=== PATIENT | female | born 1990 | race Caucasian/White ===

== ENCOUNTER → 2016-05-24 | Outpatient (CLI) | payer BC | LOC: MW.CHOBGYN 14:29 | PROVIDERS: ATTEND Obstetrics & Gynecology | DX: Z87.42 Personal history of other diseases of the female genital tract (principal); Z87.728 Personal history of other specified (corrected) congenital malformations of nervous system and sense organs; Z87.59 Personal history of other complications of pregnancy, childbirth and the puerperium | CPT/HCPCS: 36415; 82746 ==

== ENCOUNTER → 2016-06-09 | Outpatient (CLI) | payer BC | END | disposition home or self-care (01) | LOC: MW.CHOBGYN 13:21 | PROVIDERS: ATTEND Obstetrics & Gynecology | DX: Z87.42 Personal history of other diseases of the female genital tract (principal); Z87.59 Personal history of other complications of pregnancy, childbirth and the puerperium; Z87.728 Personal history of other specified (corrected) congenital malformations of nervous system and sense organs | CPT/HCPCS: 36415; 84144 ==

== ENCOUNTER → 2016-07-05 | Outpatient (CLI) | payer BC | LOC: MW.CHOBGYN 11:40 | PROVIDERS: ATTEND Obstetrics & Gynecology | DX: N97.0 Female infertility associated with anovulation (principal) | CPT/HCPCS: 36415; 84144 ==

== ENCOUNTER → 2016-07-14 | Outpatient (CLI) | payer BC | LOC: MW.CHOBGYN 14:12 | PROVIDERS: ATTEND Obstetrics & Gynecology | DX: N97.0 Female infertility associated with anovulation (principal) | CPT/HCPCS: 36415; 84144; 84702 ==

== ENCOUNTER → 2016-07-16 | Outpatient (CLI) | payer BC | LOC: MW.CHOBGYN 14:18 | PROVIDERS: ATTEND Obstetrics & Gynecology | DX: N97.0 Female infertility associated with anovulation (principal) | CPT/HCPCS: 36415; 84702 ==

== ENCOUNTER → 2016-07-21 | Outpatient (CLI) | payer BC | LOC: MW.CHOBGYN 14:19 | PROVIDERS: ATTEND Obstetrics & Gynecology | DX: N89.8 Other specified noninflammatory disorders of vagina (principal) | CPT/HCPCS: 87480; 87510; 87660 ==

== ENCOUNTER → 2016-08-02 | Outpatient (CLI) | payer BC | END | disposition home or self-care (01) | LOC: MW.CHOBGYN 13:38 | PROVIDERS: ATTEND Obstetrics & Gynecology | DX: O09.90 Supervision of high risk pregnancy, unspecified, unspecified trimester (principal) | CPT/HCPCS: 81003; 87480; 87491; 87510; 87591; 87660 ==

== ENCOUNTER → 2016-08-16 | Outpatient (CLI) | payer BC | LOC: MW.CHOBGYN 15:21 | PROVIDERS: ATTEND Obstetrics & Gynecology | DX: O26.859 Spotting complicating pregnancy, unspecified trimester (principal) | CPT/HCPCS: 81003 ==

== ENCOUNTER 2017-03-17 05:00 | Inpatient (IN) | payer BC ==
[~2017-03-17 05:00] MED LIST: Citric Acid/Sodium Citrate Solution 30 ML Cup PO SCH; Oxytocin/0.9 % Sodium Chloride 30 UNIT/500 ML BAG IV SCH; Sodium Chloride 0.9% 10 ML Syringe FLUSH PRN; Sodium Chloride 0.9% 2.5 ML Syringe FLUSH PRN
[2017-03-17] MEDS: Lactated Ringers 1,000 ML IV SCH ×4 (05:59→18:20)
[2017-03-17] MEDS ORDERED: Octyl 2-Cyanoacrylate 1 Tube ONE (07:21)
[2017-03-17] MEDS ORDERED: Oxytocin 10 Units/1 ML SDV ONE (07:34)
[2017-03-17] MEDS ORDERED: Ondansetron 4 MG/2 ML SDV ONE (07:34)
[2017-03-17] MEDS ORDERED: ceFAZolin 1 GM Vial ONE (07:34)
[2017-03-17] MEDS ORDERED: Morphine PF 10 MG/10 ML SDV ONE (07:34)
[2017-03-17] MEDS ORDERED: Sodium Chloride 0.9% 20 ML ONE (07:34)
--- NOTE | 2017-03-17 07:52 | PCM.PREANE ---
Preanesthetic Assessment - Anesthesia/Transfusion/Family Hx Anesthesia History: Prior Anesthesia Without Reaction Family History of Anesthesia Reaction: No Transfusion History: No Prior Transfusion(s) Intubation History: Unknown - Review of Systems General: No Symptoms Pulmonary: No Symptoms Cardiovascular: No Symptoms Gastrointestinal: No Symptoms Neurological: No Symptoms Other: Reports: None - Physical Assessment Height: 1.63 m Weight: 132.449 kg ASA Class: 2E Mental Status: Alert & Oriented x3 Airway Class: Mallampati = 2 Dentition: Reports: Normal Dentition Thyro-Mental Finger Breadths: 3 Mouth Opening Finger Breadths: 3 ROM/Head Extension: Full Lungs: Clear to Auscultation, Normal Respiratory Effort Cardiovascular: Regular Rate, Regular Rhythm - Lab Values: Laboratory Last Values WBC 13.58 K/uL (4.0-11.0) H 03/17/17 05:43 RBC 4.23 M/uL (4.30-5.90) L 03/17/17 05:43 Hgb 13.5 g/dL (12.0-16.0) 03/17/17 05:43 Hct 38.8 % (36.0-46.0) 03/17/17 05:43 MCV 91.7 fL (80.0-98.0) 03/17/17 05:43 MCH 31.9 pg (27.0-32.0) 03/17/17 05:43 MCHC 34.8 g/dL (31.0-37.0) 03/17/17 05:43 RDW Std Deviation 44.9 fl (28.0-62.0) 03/17/17 05:43 RDW Coeff of Wilber 14 % (11.0-15.0) 03/17/17 05:43 Plt Count 213 K/uL (150-400) 03/17/17 05:43 MPV 10.70 fL (7.40-12.00) 03/17/17 05:43 Nucleated RBC % 0.0 /100WBC 03/17/17 05:43 Nucleated RBCs # 0 K/uL 03/17/17 05:43 Blood Type O POSITIVE 03/17/17 05:43 Antibody Screen NEGATIVE 03/17/17 05:43 - Allergies Allergies/Adverse Reactions: Allergies Allergy/AdvReac Type Severity Reaction Status Date / Time No Known Allergies Allergy Verified 05/08/16 19:28 - Blood Blood Available: No - Anesthesia Plan Pre-Op Medication Ordered: None - Acknowledgements Anesthesia Type Planned: Spinal (general anesthesia back-up plan) Pt an Appropriate Candidate for the Planned Anesthesia: Yes Alternatives and Risks of Anesthesia Discussed w Pt/Guardian: Yes Pt/Guardian Understands and Agrees with Anesthesia Plan: Yes PreAnesthesia Questionnaire HEENT History: Reports: Other (See Below) Other HEENT History: wears glasses Gastrointestinal History: Reports: GERD Other Gastrointestinal History: heartburn with Genitourinary History: Reports: None [employer] OPERATOR History: Reports: Polycystic Ovaries, Psychiatric History: Reports: Addiction, Anxiety Endocrine/Metabolic History: Reports: Diabetes, Gestational, Obesity/BMI 30+ - Past Surgical History Head Surgeries/Procedures: Reports: None Female Surgical History: Reports: Section (under GETA), D&C - SUBSTANCE USE Smoking Status *Q: Never Smoker Second Hand Smoke Exposure: No Recreational Drug Use History: No - HOME MEDS Home Medications: Home Meds #103/Iron Fumarate/Fa [ ] 1 each PO DAILY 08/03/15 [ History] - CURRENT (IN HOUSE) MEDS Current Meds: Current Medications Citric Acid/Sodium Citrate (Bicitra Solution) 30 ml PO .ONCE ISABELLE Lactated Ringer's (Ringers, Lactated) 1,000 mls @ 500 mls/hr IV .BOLUS ISABELLE Last Admin: 03/17/17 07:08 Dose: 500 mls/hr Oxytocin/Sodium Chloride (Oxytocin 30 Unit/500 Ml-Ns) 30 unit in 500 mls @ 250 mls/hr IV TITRATE ISABELLE Sodium Chloride (Saline Flush) 10 ml FLUSH ASDIRECTED PRN PRN Reason: Keep Vein Open Sodium Chloride (Saline Flush) 2.5 ml FLUSH ASDIRECTED PRN PRN Reason: Keep Vein Open Discontinued Medications Cefazolin Sodium (Ancef) Confirm Administered Dose 2 gm .ROUTE .STK-MED ONE Stop: 03/17/17 07:35 Sodium Chloride (Normal Saline) Confirm Administered Dose 20 mls @ as directed .ROUTE .STK-MED ONE Stop: 03/17/17 07:35 Morphine Sulfate (Duramorph Pf) Confirm Administered Dose 10 mg .ROUTE .STK-MED ONE Stop: 03/17/17 07:35 Octyl Cyanoacrylate (Dermabond Advance) Confirm Administered Dose 1 applic .ROUTE .STK-MED ONE Stop: 03/17/17 07:22 Ondansetron HCl (Zofran) Confirm Administered Dose 4 mg .ROUTE .STK-MED ONE Stop: 03/17/17 07:35 Oxytocin (Pitocin) Confirm Administered Dose 20 unit .ROUTE .STK-MED ONE Stop: 03/17/17 07:35
[2017-03-17] MEDS ORDERED: Bisacodyl 10 MG Supp RECTAL PRN (08:51)
[2017-03-17] MEDS ORDERED: Ondansetron 4 MG/2 ML SDV IV PRN (08:51)
[2017-03-17] MEDS ORDERED: diphenhydrAMINE 50 MG/ML SDV IVPUSH PRN (08:51)
[2017-03-17] MEDS ORDERED: Acetaminophen/oxyCODONE 325-5 MG Tab PO PRN (08:51)
--- NOTE | 2017-03-17 08:55 | PCM.OPNOTE ---
- General Post-Op/Procedure Note Date of Surgery/Procedure: 03/17/17 Operative Procedure(s): Repeat C/Section Pre Op Diagnosis: [id number]+5 Previois C/section Post-Op Diagnosis: Same Anesthesia Technique: Spinal Primary Surgeon: Yaakov Greene Learning And Development Director: Lucía Núñez EBL in mLs: 800 Complications: None Condition: Good
[2017-03-17] MEDS ORDERED: Naloxone 0.4 MG/ML Syringe IVPUSH ONE (09:24)
[2017-03-17] MEDS ORDERED: fentaNYL 100 MCG/2 ML SDV IVPUSH PRN (09:24)
[2017-03-17] MEDS ORDERED: Meperidine PF 50 MG/ML Syringe IVPUSH ONE (09:31)
[2017-03-17] MEDS ORDERED: Nalbuphine 10 MG/1 ML Vial IVPUSH PRN (09:32)
[2017-03-17] MEDS ORDERED: Acetaminophen/oxyCODONE 325-10 MG Tab PO PRN (09:33)
[2017-03-17] MEDS ORDERED: Meperidine PF 25 MG/ML Syringe ONE (09:34)
[2017-03-17] MEDS: Ketorolac 30 MG/ML SDV IVPUSH SCH ×3 (09:41→21:09)
--- NOTE | 2017-03-17 10:27 | OR ---
SURGEON: Yaakov Greene MD DATE OF PROCEDURE: 03/17/2017 PREOPERATIVE DIAGNOSIS: Intrauterine 38 plus 4, previous section, admitted for elective repeat section. POSTOPERATIVE DIAGNOSIS: Intrauterine 38 plus 4, previous section, admitted for elective repeat section. OPERATION PERFORMED: Repeat low transverse section. CORNER CUTTER: MERVIN Wolfe. ANESTHESIA: Spinal, Guanaco Welsh and Dr. Zimmer. ESTIMATED BLOOD LOSS: 800 mL. COMPLICATIONS: None. FINDINGS: Female fetus. score reported to be 8 and 9. Weight is not available. Normal uterus, tubes, and ovaries. INDICATIONS FOR SURGERY: This patient is term. She is 38 plus 4. She is to have elective repeat section before the 39 zaki based on the recommendation of the perinatologist. Her care was uncomplicated. PROCEDURE IN DETAIL: The patient was brought to the OR, properly identified after adequate level of spinal anesthesia with a Davis catheter in the bladder. The patient was prepped and draped in sterile fashion as usual. Low transverse Pfannenstiel skin incision was done. Ranulfo fascia and rectus fascia were opened in the direction of the incision. The 2 recti muscles were and peritoneal cavity was entered. Bladder flap was raised in the usual manner, pushing the bladder away from the lower uterine segment. Low transverse uterine incision was done and extended manually with the hand. Fetus was in the vertex position, delivered without any problem, cried immediately. score reported to be 8 and 9. Weight was not available. The placenta delivered spontaneous, complete, and intact and then repair of the lower uterine segment done with 2-0 Vicryl continuous interlocking in 2 layers. Reperitonealization done with 3-0 Vicryl continuous. The peritoneal cavity was evacuated from all blood and amniotic fluid and closed with 3-0 Vicryl continuous. The rectus fascia was closed with #1 double-stranded PDS continuous. The Ranulfo's fascia was closed with 3-0 Vicryl continuous and the skin closed with Insorb staple. Instrument and sponge count was correct. The patient tolerated the procedure well and went to recovery room in stable general condition. RAKESH / ABDULKADIR /[id number]
[2017-03-17] MEDS: Docusate Sodium 100 MG Cap PO SCH ×2 (11:41→21:09)
--- NOTE | 2017-03-17 12:34 | PCM48HPAN ---
Post Anesthesia Note - EVALUATION WITHIN 48HRS OF ANESTHETIC Vital Signs in Normal Range: Yes Patient Participated in Evaluation: Yes Respiratory Function Stable: Yes Airway Patent: Yes Cardiovascular Function Stable: Yes Hydration Status Stable: Yes Pain Control Satisfactory: Yes Nausea and Vomiting Control Satisfactory: Yes Mental Status Recovered: Yes - COMMENTS/OBSERVATIONS Free Text/Narrative:: States she is a little dizzy but she was dizzy before she got here. Lights turned down.
[2017-03-18] MEDS: Ketorolac 30 MG/ML SDV IVPUSH SCH ×2 (02:47→09:13)
[2017-03-18] MEDS: Lanolin 100% Cream 7 GM Tube TOP PRN (04:51)
--- NOTE | 2017-03-18 08:48 | PCM.SURGPN ---
- General Info Date of Service: 03/18/17 POD#: 1 Functional Status: Reports: Pain Controlled - Review of Systems General: Reports: No Symptoms HEENT: Reports: No Symptoms Pulmonary: Reports: No Symptoms Cardiovascular: Reports: No Symptoms Gastrointestinal: Reports: No Symptoms Genitourinary: Reports: No Symptoms Musculoskeletal: Reports: No Symptoms Skin: Reports: No Symptoms Neurological: Reports: No Symptoms Psychiatric: Reports: No Symptoms - Patient Data Vitals - Most Recent: Last Vital Signs Temp 37.1 C 03/18/17 04:00 Pulse 77 03/18/17 04:00 Resp 18 03/18/17 06:00 BP 109/62 03/18/17 04:00 Pulse Ox 96 03/18/17 06:00 Weight - Most Recent: 132.449 kg I&O - Last 24 Hours: Intake & Output 03/17/17 03/18/17 03/18/17 22:59 06:59 14:59 Intake Total 1607 2500 Output Total 310 1500 Balance 1297 1000 Lab Results Last 24 Hrs: Laboratory Results - last 24 hr 03/17/17 03/18/17 Range/Units 11:32 05:41 Hgb 12.4 (12.0-16.0) g/dL Hct 36.2 (36.0-46.0) % POC Glucose 78 (60-110) mg/dL Med Orders - Current: Current Medications Bisacodyl (Dulcolax) 10 mg RECTAL .ONCE PRN PRN Reason: Constipation Citric Acid/Sodium Citrate (Bicitra Solution) 30 ml PO .ONCE ISABELLE Diphenhydramine HCl (Benadryl) 25 mg IVPUSH Q6H PRN PRN Reason: Itching or Nausea Last Admin: 03/17/17 14:57 Dose: 25 mg Docusate Sodium (Colace) 100 mg PO BID ISABELLE Last Admin: 03/17/17 21:09 Dose: 100 mg Emollient Ointment (Lansinoh Hpa) 0 gm TOP ASDIRECTED PRN PRN Reason: Sore Nipples Last Admin: 03/18/17 04:51 Dose: 7 gm Fentanyl (Sublimaze) 50 mcg IVPUSH Q5M PRN PRN Reason: Pain (severe 7-10) Stop: 03/18/17 09:26 Lactated Ringer's (Ringers, Lactated) 1,000 mls @ 500 mls/hr IV .BOLUS [facility] Last Admin: 03/17/17 07:08 Dose: 500 mls/hr Oxytocin/Sodium Chloride (Oxytocin 30 Unit/500 Ml-Ns) 30 unit in 500 mls @ 250 mls/hr IV TITRATE [facility] Lactated Ringer's (Ringers, Lactated) 1,000 mls @ 125 mls/hr IV ASDIRECTED ISABELLE Last Admin: 03/17/17 18:20 Dose: 125 mls/hr Ibuprofen (Motrin) 800 mg PO Q8H PRN PRN Reason: mild pain or fever Ketorolac Tromethamine (Toradol) 30 mg IVPUSH Q6H ISABELLE Stop: 03/18/17 09:01 Last Admin: 03/18/17 02:47 Dose: 30 mg Nalbuphine HCl (Nubain) 5 mg IVPUSH Q3H PRN PRN Reason: Itching Stop: 03/18/17 09:32 Ondansetron HCl (Zofran) 4 mg IV Q4H PRN PRN Reason: Nausea/Vomiting Last Admin: 03/17/17 14:56 Dose: 4 mg Oxycodone/Acetaminophen (Percocet 325-5 Mg) 1 tab PO Q4H PRN PRN Reason: Pain (moderate 4-6) Oxycodone/Acetaminophen (Percocet 325-5 Mg) 2 tab PO Q4H PRN PRN Reason: Pain (moderate 4-6) Oxycodone/Acetaminophen (Percocet 325-10 Mg) 1 tab PO Q4H PRN PRN Reason: for breakthrough pain Stop: 03/19/17 09:33 Sodium Chloride (Saline Flush) 10 ml FLUSH ASDIRECTED PRN PRN Reason: Keep Vein Open Sodium Chloride (Saline Flush) 2.5 ml FLUSH ASDIRECTED PRN PRN Reason: Keep Vein Open Discontinued Medications Cefazolin Sodium (Ancef) Confirm Administered Dose 2 gm .ROUTE .STK-MED ONE Stop: 03/17/17 07:35 Sodium Chloride (Normal Saline) Confirm Administered Dose 20 mls @ as directed .ROUTE .STK-MED ONE Stop: 03/17/17 07:35 Meperidine HCl (Demerol) 25 mg IVPUSH ONETIME ONE Stop: 03/17/17 09:32 Last Admin: 03/17/17 09:36 Dose: 25 mg Meperidine HCl (Demerol) Confirm Administered Dose 25 mg .ROUTE .STK-MED ONE Stop: 03/17/17 09:35 Last Admin: 03/17/17 11:18 Dose: Not Given Morphine Sulfate (Duramorph Pf) Confirm Administered Dose 10 mg .ROUTE .STK-MED ONE Stop: 03/17/17 07:35 Naloxone HCl (Narcan) 0.1 mg IVPUSH ONETIME ONE Stop: 03/17/17 09:25 Last Admin: 03/17/17 11:18 Dose: Not Given Octyl Cyanoacrylate (Dermabond Advance) Confirm Administered Dose 1 applic .ROUTE .STK-MED ONE Stop: 03/17/17 07:22 Ondansetron HCl (Zofran) Confirm Administered Dose 4 mg .ROUTE .STK-MED ONE Stop: 03/17/17 07:35 Oxytocin (Pitocin) Confirm Administered Dose 20 unit .ROUTE .STK-MED ONE Stop: 03/17/17 07:35 - Exam Wound/Incisions: Healing Well General: Alert, Oriented HEENT: Pupils Equal Neck: Supple Lungs: Clear to Auscultation, Normal Respiratory Effort Cardiovascular: Regular Rate, Regular Rhythm GI/Abdominal Exam: Normal Bowel Sounds, Soft, Non-Tender, No Organomegaly, No Distention, No Abnormal Bruit, No Mass, Pelvis Stable Extremities: Normal Inspection, Normal Range of Motion, Non-Tender, No Pedal Edema, Normal Capillary Refill Skin: Warm, Dry, Intact Neurological: No New Focal Deficit Psy/Mental Status: Alert, Normal Affect, Normal Mood - Problem List Review Problem List Initiated/Reviewed/Updated: Yes - My Orders Last 24 Hours: Active Orders 24 hr Category Date Time Status Patient Status [ADT] Routine ADT 03/17/17 08:51 Active Ambulate [RC] PER UNIT ROUTINE Care 03/17/17 08:51 Active Antiembolic Devices [RC] PER UNIT ROUTINE Care 03/17/17 08:52 Active Blood Glucose Check, Bedside [RC] ONETIME Care 03/17/17 11:30 Active Bradycardia-Neuroaxis [employer] [RC] ROUTINE Care 03/17/17 09:24 Active Bradycardia-Neuroaxis [employer] [RC] ROUTINE Care 03/17/17 09:31 Active Communication Order [RC] PER UNIT ROUTINE Care 03/17/17 08:51 Active Communication Order [RC] PER UNIT ROUTINE Care 03/17/17 08:51 Active Communication Order [RC] Per Unit Routine Care 03/17/17 08:51 Active Hypertension-Neuroaxis [employer] [RC] ROUTINE Care 03/17/17 09:24 Active Hypertension-Neuroaxis [employer] [RC] ROUTINE Care 03/17/17 09:31 Active Hypotension-Neuroaxis [employer] [RC] ROUTINE Care 03/17/17 09:24 Active Hypotension-Neuroaxis [employer] [RC] ROUTINE Care 03/17/17 09:31 Active May Shower [RC] ASDIRECTED Care 03/17/17 08:51 Active Oxygen Therapy [RC] PER UNIT ROUTINE Care 03/17/17 09:25 Active RT Incentive Spirometry [RC] Q2HWA Care 03/17/17 08:51 Active Vital Signs [RC] PER UNIT ROUTINE Care 03/17/17 08:51 Active Vital Signs [RC] Q1H Care 03/17/17 09:25 Active Regular Diet [DIET] Diet 03/17/17 Lunch Active Acetaminophen/oxyCODONE [Percocet 325-10 MG] Med 03/17/17 09:33 Active 1 tab PO Q4H PRN Acetaminophen/oxyCODONE [Percocet 325-5 MG] Med 03/17/17 08:51 Active 1 tab PO Q4H PRN Acetaminophen/oxyCODONE [Percocet 325-5 MG] Med 03/17/17 08:51 Active 2 tab PO Q4H PRN Bisacodyl [Dulcolax] Med 03/17/17 08:51 Active 10 mg RECTAL .ONCE PRN Docusate Sodium [Colace] Med 03/17/17 09:00 Active 100 mg PO BID Ibuprofen [Motrin] Med 03/17/17 08:51 Active 800 mg PO Q8H PRN Ketorolac [Toradol] Med 03/17/17 09:00 Active 30 mg IVPUSH Q6H Lactated Ringers [Ringers, Lactated] 1,000 ml Med 03/17/17 09:00 Active IV ASDIRECTED Lanolin [Lansinoh HPA] Med 03/17/17 08:51 Active See Dose Instructions TOP ASDIRECTED PRN Nalbuphine [Nubain] Med 03/17/17 09:32 Active 5 mg IVPUSH Q3H PRN Ondansetron [Zofran] Med 03/17/17 08:51 Active 4 mg IV Q4H PRN diphenhydrAMINE [Benadryl] Med 03/17/17 08:51 Active 25 mg IVPUSH Q6H PRN fentaNYL [Sublimaze] Med 03/17/17 09:24 Active 50 mcg IVPUSH Q5M PRN AN Neuroaxis Duramorph Precaution Reflex [OM.PC] PER Ot 03/17/17 09:30 Ordered UNIT ROUTINE AN Neuroaxis Duramorph Precaution Reflex [OM.PC] PER Ot 03/18/17 09:30 Ordered UNIT ROUTINE Assess Lochia [WOMSER] Per Unit Routine Ot 03/17/17 08:51 Ordered Assess Uterine Involution [WOMSER] Per Unit Routine Ot 03/17/17 08:51 Ordered Breast Pump [WOMSER] Per Unit Routine Ot 03/17/17 08:51 Ordered Peripheral IV Discontinue [OM.PC] Routine Oth 03/17/17 08:51 Ordered Sequential Compression Device [OM.PC] Per Unit Routine Oth 03/17/17 08:51 Ordered Medication Orders Bisacodyl (Dulcolax) 10 mg RECTAL .ONCE PRN PRN Reason: Constipation Citric Acid/Sodium Citrate (Bicitra Solution) 30 ml PO .ONCE ISABELLE Diphenhydramine HCl (Benadryl) 25 mg IVPUSH Q6H PRN PRN Reason: Itching or Nausea Last Admin: 03/17/17 14:57 Dose: 25 mg Docusate Sodium (Colace) 100 mg PO BID ISABELLE Last Admin: 03/17/17 21:09 Dose: 100 mg Admin: 03/17/17 11:41 Dose: Emollient Ointment (Lansinoh Hpa) 0 gm TOP ASDIRECTED PRN PRN Reason: Sore Nipples Last Admin: 03/18/17 04:51 Dose: 7 gm Fentanyl (Sublimaze) 50 mcg IVPUSH Q5M PRN PRN Reason: Pain (severe 7-10) Stop: 03/18/17 09:26 Lactated Ringer's (Ringers, Lactated) 1,000 mls @ 500 mls/hr IV .BOLUS ISABELLE Last Admin: 03/17/17 07:08 Dose: 500 mls/hr Infusion: 03/17/17 07:08 Dose: 500 mls/hr Admin: 03/17/17 05:59 Dose: 500 mls/hr Oxytocin/Sodium Chloride (Oxytocin 30 Unit/500 Ml-Ns) 30 unit in 500 mls @ 250 mls/hr IV TITRATE ISABELLE Lactated Ringer's (Ringers, Lactated) 1,000 mls @ 125 mls/hr IV ASDIRECTED [facility] Last Admin: 03/17/17 18:20 Dose: 125 mls/hr Infusion: 03/17/17 18:20 Dose: 125 mls/hr Admin: 03/17/17 10:25 Dose: 125 mls/hr Ibuprofen (Motrin) 800 mg PO Q8H PRN PRN Reason: mild pain or fever Ketorolac Tromethamine (Toradol) 30 mg IVPUSH Q6H [facility] Stop: 03/18/17 09:01 Last Admin: 03/18/17 02:47 Dose: 30 mg Admin: 03/17/17 21:09 Dose: 30 mg Admin: 03/17/17 14:57 Dose: 30 mg Admin: 03/17/17 09:41 Dose: 30 mg Nalbuphine HCl (Nubain) 5 mg IVPUSH Q3H PRN PRN Reason: Itching Stop: 03/18/17 09:32 Ondansetron HCl (Zofran) 4 mg IV Q4H PRN PRN Reason: Nausea/Vomiting Last Admin: 03/17/17 14:56 Dose: 4 mg Oxycodone/Acetaminophen (Percocet 325-5 Mg) 1 tab PO Q4H PRN PRN Reason: Pain (moderate 4-6) Oxycodone/Acetaminophen (Percocet 325-5 Mg) 2 tab PO Q4H PRN PRN Reason: Pain (moderate 4-6) Oxycodone/Acetaminophen (Percocet 325-10 Mg) 1 tab PO Q4H PRN PRN Reason: for breakthrough pain Stop: 03/19/17 09:33 Sodium Chloride (Saline Flush) 10 ml FLUSH ASDIRECTED PRN PRN Reason: Keep Vein Open Sodium Chloride (Saline Flush) 2.5 ml FLUSH ASDIRECTED PRN PRN Reason: Keep Vein Open - Assessment Assessment (Free Text/Narrative):: Status post section postoperative day #1 the Davis catheter DC'd the patient is voiding without any problem the incision is dry - Plan Plan (Free Text/Narrative):: Planning to send the patient home in a.m.
[2017-03-18] MEDS: Docusate Sodium 100 MG Cap PO SCH ×2 (09:17→20:44)
[2017-03-18] MEDS: Acetaminophen/oxyCODONE 325-5 MG Tab PO PRN ×2 (15:31→20:44)
[2017-03-18] MEDS: Ibuprofen 800 MG Tab PO PRN (17:57)
[2017-03-19] MEDS: Acetaminophen/oxyCODONE 325-5 MG Tab PO PRN ×2 (00:31→07:33)
[2017-03-19] MEDS: Ibuprofen 800 MG Tab PO PRN (04:15)
[2017-03-19 08:06] VITALS: BP 133/84
--- NOTE | 2017-03-19 08:09 | PCM.DCSUM1 ---
Discharge Summary - Hospital Course Free Text/Narrative:: Discharge home with . Follow up in 10 days for incision check and 6 weeks for post visit. - Discharge Data Discharge Date: 03/19/17 Discharge Disposition: Home, Self-Care 01 Condition: Good - Patient Summary/Data Operative Procedure(s) Performed: Repeat C/Section - Patient Instructions Diet: Usual Diet as Tolerated Activity: As Tolerated, Rest and Relax Today Driving: May Drive Today Showering/Bathing: May Shower Wound/Incision Care: Keep Operative Site/Wound Site Clean and Dry Notify Provider of: Fever, Increased Pain, Swelling and Redness, Drainage, Nausea and/or Vomiting Other/Special Instructions: Discharge home with . Follow up in 10 days for incision check and 6 weeks for post visit. - Discharge Plan Home Medications: Home Meds #103/Iron Fumarate/Fa [ ] 1 each PO DAILY 08/03/15 [ History] Patient Handouts: Delivery, Care After Referrals: [facility] [Outside] Yaakov Greene MD [Physician] - (2 weeks: 04/05/2017 @ 0930 6 weeks: 04/22/17 @ 1045 ) - General Info Date of Service: 03/19/17 Functional Status: Reports: Pain Controlled, Tolerating Diet, Ambulating, Urinating - Review of Systems General: Reports: No Symptoms HEENT: Reports: No Symptoms Pulmonary: Reports: No Symptoms Cardiovascular: Reports: No Symptoms Gastrointestinal: Reports: No Symptoms Genitourinary: Reports: No Symptoms Musculoskeletal: Reports: No Symptoms Skin: Reports: No Symptoms Neurological: Reports: No Symptoms Psychiatric: Reports: No Symptoms - Patient Data Vitals - Most Recent: Last Vital Signs Temp 36.9 C 03/19/17 08:00 Pulse 81 03/19/17 08:00 Resp 16 03/19/17 08:00 BP 133/84 03/19/17 08:00 Pulse Ox 97 03/19/17 08:00 Weight - Most Recent: 132.449 kg Med Orders - Current: Current Medications Bisacodyl (Dulcolax) 10 mg RECTAL .ONCE PRN PRN Reason: Constipation Citric Acid/Sodium Citrate (Bicitra Solution) 30 ml PO .ONCE ISABELLE Diphenhydramine HCl (Benadryl) 25 mg IVPUSH Q6H PRN PRN Reason: Itching or Nausea Last Admin: 03/17/17 14:57 Dose: 25 mg Docusate Sodium (Colace) 100 mg PO BID ISABELLE Last Admin: 03/18/17 20:44 Dose: 100 mg Emollient Ointment (Lansinoh Hpa) 0 gm TOP ASDIRECTED PRN PRN Reason: Sore Nipples Last Admin: 03/18/17 04:51 Dose: 7 gm Lactated Ringer's (Ringers, Lactated) 1,000 mls @ 500 mls/hr IV .BOLUS ISABELLE Last Admin: 03/17/17 07:08 Dose: 500 mls/hr Oxytocin/Sodium Chloride (Oxytocin 30 Unit/500 Ml-Ns) 30 unit in 500 mls @ 250 mls/hr IV TITRATE ISABELLE Lactated Ringer's (Ringers, Lactated) 1,000 mls @ 125 mls/hr IV ASDIRECTED ISABELLE Last Admin: 03/17/17 18:20 Dose: 125 mls/hr Ibuprofen (Motrin) 800 mg PO Q8H PRN PRN Reason: mild pain or fever Last Admin: 03/19/17 04:15 Dose: 800 mg Ondansetron HCl (Zofran) 4 mg IV Q4H PRN PRN Reason: Nausea/Vomiting Last Admin: 03/17/17 14:56 Dose: 4 mg Oxycodone/Acetaminophen (Percocet 325-5 Mg) 1 tab PO Q4H PRN PRN Reason: Pain (moderate 4-6) Last Admin: 03/19/17 07:33 Dose: 1 tab Oxycodone/Acetaminophen (Percocet 325-5 Mg) 2 tab PO Q4H PRN PRN Reason: Pain (moderate 4-6) Oxycodone/Acetaminophen (Percocet 325-10 Mg) 1 tab PO Q4H PRN PRN Reason: for breakthrough pain Stop: 03/19/17 09:33 Sodium Chloride (Saline Flush) 10 ml FLUSH ASDIRECTED PRN PRN Reason: Keep Vein Open Sodium Chloride (Saline Flush) 2.5 ml FLUSH ASDIRECTED PRN PRN Reason: Keep Vein Open Discontinued Medications Cefazolin Sodium (Ancef) Confirm Administered Dose 2 gm .ROUTE .STK-MED ONE Stop: 03/17/17 07:35 Fentanyl (Sublimaze) 50 mcg IVPUSH Q5M PRN PRN Reason: Pain (severe 7-10) Stop: 03/18/17 09:26 Sodium Chloride (Normal Saline) Confirm Administered Dose 20 mls @ as directed .ROUTE .STK-MED ONE Stop: 03/17/17 07:35 Ketorolac Tromethamine (Toradol) 30 mg IVPUSH Q6H ISABELLE Stop: 03/18/17 09:01 Last Admin: 03/18/17 09:13 Dose: 30 mg Meperidine HCl (Demerol) 25 mg IVPUSH ONETIME ONE Stop: 03/17/17 09:32 Last Admin: 03/17/17 09:36 Dose: 25 mg Meperidine HCl (Demerol) Confirm Administered Dose 25 mg .ROUTE .STK-MED ONE Stop: 03/17/17 09:35 Last Admin: 03/17/17 11:18 Dose: Not Given Morphine Sulfate (Duramorph Pf) Confirm Administered Dose 10 mg .ROUTE .STK-MED ONE Stop: 03/17/17 07:35 Nalbuphine HCl (Nubain) 5 mg IVPUSH Q3H PRN PRN Reason: Itching Stop: 03/18/17 09:32 Naloxone HCl (Narcan) 0.1 mg IVPUSH ONETIME ONE Stop: 03/17/17 09:25 Last Admin: 03/17/17 11:18 Dose: Not Given Octyl Cyanoacrylate (Dermabond Advance) Confirm Administered Dose 1 applic .ROUTE .STK-MED ONE Stop: 03/17/17 07:22 Ondansetron HCl (Zofran) Confirm Administered Dose 4 mg .ROUTE .STK-MED ONE Stop: 03/17/17 07:35 Oxytocin (Pitocin) Confirm Administered Dose 20 unit .ROUTE .STK-MED ONE Stop: 03/17/17 07:35 - Exam General: Reports: Alert, Oriented, Cooperative, No Acute Distress Lungs: Reports: Clear to Auscultation, Normal Respiratory Effort Cardiovascular: Reports: Regular Rate, Regular Rhythm, No Murmurs GI/Abdominal Exam: Soft, Non-Tender, No Organomegaly (Female) Exam: Vaginal Bleeding Rectal (Female) Exam: Deferred Back Exam: Reports: Full Range of Motion Extremities: Normal Range of Motion, Non-Tender, No Pedal Edema, Normal Capillary Refill Skin: Reports: Warm, Dry, Intact Wound/Incisions: Reports: Healing Well, No Drainage Neurological: Reports: No New Focal Deficit, Normal Speech, Normal Tone Psy/Mental Status: Reports: Alert, Normal Affect, Normal Mood *Q Meaningful Use (DIS) - VTE *Q VTE Criteria *Q: - Stroke *Q Stroke Criteria *Q: - AMI *Q AMI Criteria *Q:
[2017-03-19] MEDS: Lanolin 100% Cream 7 GM Tube TOP PRN (10:12)
[2017-03-19] MEDS: Docusate Sodium 100 MG Cap PO SCH (10:14)
== END 2017-03-19 10:30 | disposition home or self-care (01) | DRG 540 ==
LOC: MW.OB 05:00
PROVIDERS: ADMIT Obstetrics & Gynecology; ATTEND Obstetrics & Gynecology
PROC: 10D00Z1 Extraction of Products of Conception, Low, Open Approach (ICD-10-PCS; principal; 2017-03-17)
DX: O34.211 Maternal care for low transverse scar from previous cesarean delivery (principal); Z3A.38 38 weeks gestation of pregnancy; Z37.0 Single live birth
CPT/HCPCS: 01961; 36415; 59025; 82962; 85014; 85018; 85027; 86850; 86900; 86901; A9270-GY; J0690; J1200; J1885; J2175; J2270; J2405; J2590; J7120

== ENCOUNTER 2021-04-03 16:11 | Emergency (ER) | payer OTHER ==
[2021-04-03] MEDS ORDERED: Sodium Chloride 0.9% 1,000 ML IV ONE (16:40)
[2021-04-03] MEDS ORDERED: Ketorolac 30 MG/ML SDV IVPUSH ONE (16:41)
[2021-04-03] MEDS ORDERED: Cyclobenzaprine 10 MG Tab PO ONE (16:41)
--- NOTE | 2021-04-03 16:44 | EDM.PDOC ---
ED HPI GENERAL MEDICAL PROBLEM - General Chief Complaint: Syncope Stated Complaint: [facility] REFERRAL, FAINTED EARLIER Time Seen by Provider: 04/03/21 16:13 Source of Information: Reports: Patient History Limitations: Reports: No Limitations - History of Present Illness INITIAL COMMENTS - FREE TEXT/NARRATIVE: 30-year-old female presents for syncopal episode. Patient states this occurred this morning. She got up from bed to urinate and noted upon getting up that she felt dizzy and lightheaded. She began to feel nauseated and had tunneling of vision. After sitting down on the toilet she did slump over to the right and had a brief syncopal episode. Her assisted her. Afterwards she has felt tired throughout the day but has had no further syncopal episodes. Denies chest pain or shortness of breath. Denies fevers or cough. Denies headache, but does note pain and muscle tightness in her right posterior neck. Headache Pain Score (Numeric/FACES): 3 - Related Data Allergies Allergy/AdvReac Type Severity Reaction Status Date / Time No Known Allergies Allergy Verified 04/03/21 16:28 Home Meds: Home Meds Cetirizine [ZyrTEC] 10 mg PO DAILY 04/03/21 [History] hydrOXYzine HCL [Hydroxyzine HCl] 50 mg PO DAILY 04/03/21 [History] Past Medical History HEENT History: Reports: Other (See Below) Other HEENT History: wears glasses Gastrointestinal History: Reports: GERD Other Gastrointestinal History: heartburn with Genitourinary History: Reports: None [employer] REPRESENTATIVE History: Reports: Polycystic Ovaries, Psychiatric History: Reports: Addiction, Anxiety Endocrine/Metabolic History: Reports: Diabetes, Gestational, Obesity/BMI 30+ - Past Surgical History Head Surgeries/Procedures: Reports: None Female Surgical History: Reports: Section Social & Family History - Family History Family Medical History: No Pertinent Family History - Tobacco Use Second Hand Smoke Exposure: No - Caffeine Use Caffeine Use: Reports: None - Recreational Drug Use Recreational Drug Use: No ED ROS GENERAL - Review of Systems Review Of Systems: Comprehensive ROS is negative, except as noted in HPI. ED EXAM, GENERAL - Physical Exam Exam: See Below Exam Limited By: No Limitations General Appearance: Alert, WD/WN, No Apparent Distress Eye Exam: Bilateral Eye: EOMI, PERRL Ears: Hearing Grossly Normal Throat/Mouth: Normal Voice, No Airway Compromise Head: Atraumatic, Normocephalic Respiratory/Chest: No Respiratory Distress, Lungs Clear, Normal Breath Sounds, No Accessory Muscle Use Cardiovascular: Normal Peripheral Pulses, Regular Rate, Rhythm GI/Abdominal: Soft, Non-Tender Extremities: Normal Inspection Neurological: Alert, CN II-XII Intact, Normal Cognition, Normal Gait, No Motor/Sensory Deficits Psychiatric: Normal Affect, Normal Mood Skin Exam: Warm, Dry, Intact, Normal Color #1 Interpretation EKG Date: 04/03/21 Time: 17:01 Rhythm: NSR Rate (Beats/Min): 73 [place]: Normal P-Wave: Present QRS: Normal ST-T: Normal QT: Normal SD/PQ Interval: 173 Comparison: NA - No Prior EKG EKG Interpretation Comments: normal EKG, normal sinus rhythm, no ischemic changes, low voltage QRS Course - Vital Signs Last Recorded V/S: Last Vital Signs Temp 98.2 F 04/03/21 16:25 Pulse 73 04/03/21 16:25 Resp 20 04/03/21 16:25 BP 143/84 H 04/03/21 16:25 Pulse Ox 96 04/03/21 16:25 - Orders/Labs/Meds Orders: Active Orders 24 hr Category Date Time Status Saline Lock Insert [OM.PC] Stat Oth 04/03/21 16:40 Ordered Labs: Laboratory Tests 04/03/21 04/03/21 Range/Units 17:26 17:26 WBC 5.48 (4.0-11.0) K/uL RBC 4.81 (4.30-5.90) M/uL Hgb 14.8 (12.0-16.0) g/dL Hct 43.6 (36.0-46.0) % MCV 90.6 (80.0-98.0) fL MCH 30.8 (27.0-32.0) pg MCHC 33.9 (31.0-37.0) g/dL RDW Std Deviation 45.2 (28.0-62.0) fl RDW Coeff of Wilber 14 (11.0-15.0) % Plt Count 233 (150-400) K/uL MPV 10.40 (7.40-12.00) fL Neut % (Auto) 62.4 (48.0-80.0) % Lymph % (Auto) 20.4 (16.0-40.0) % [place] % (Auto) 15.5 H (0.0-15.0) % Eos % (Auto) 1.3 (0.0-7.0) % Baso % (Auto) 0.4 (0.0-1.5) % Neut # (Auto) 3.4 (1.4-5.7) K/uL Lymph # (Auto) 1.1 (0.6-2.4) K/uL [place] # (Auto) 0.9 H (0.0-0.8) K/uL Eos # (Auto) 0.1 (0.0-0.7) K/uL Baso # (Auto) 0.0 (0.0-0.1) K/uL Nucleated RBC % 0.0 /100WBC Nucleated RBCs # 0 K/uL Sodium 140 (136-145) mmol/L Potassium 3.8 (3.5-5.1) mmol/L Chloride 104 (98-107) mmol/L Carbon Dioxide 27.2 (21.0-32.0) mmol/L BUN 12 (7.0-18.0) mg/dL Creatinine 0.8 (0.6-1.0) mg/dL Est Cr Clr Drug Dosing 87.99 mL/min Estimated GFR (MDRD) > 60.0 ml/min Glucose 77 (74-106) mg/dL Calcium 9.4 (8.5-10.1) mg/dL Total Bilirubin 0.2 (0.2-1.0) mg/dL AST 21 (15-37) IU/L ALT 27 (14-63) IU/L Alkaline Phosphatase 81 (46-116) U/L Troponin I < 0.050 (0.000-0.056) ng/mL Total Protein 8.0 (6.4-8.2) g/dL Albumin 3.8 (3.4-5.0) g/dL Globulin 4.2 H (2.6-4.0) g/dL Albumin/Globulin Ratio 0.9 (0.9-1.6) TSH, Ultra Sensitive 1.17 (0.36-3.74) uIU/mL Meds: Medications Discontinued Medications Generic Name Dose Route Start Last Admin Trade Name Freq PRN Reason Stop Dose Admin Cyclobenzaprine HCl 10 mg 04/03/21 16:41 04/03/21 17:21 Cyclobenzaprine 10 Mg Tab PO 04/03/21 16:42 10 mg ONETIME ONE Administration Sodium Chloride 1,000 mls @ 999 mls/hr 04/03/21 16:40 04/03/21 17:19 Normal Saline IV 04/03/21 17:40 999 mls/hr .Bolus ONE Administration Ketorolac Tromethamine 15 mg 04/03/21 16:41 04/03/21 17:20 Ketorolac 30 Mg/Ml Sdv IVPUSH 04/03/21 16:42 15 mg ONETIME ONE Administration - Re-Assessments/Exams Free Text/Narrative Re-Assessment/Exam: 04/03/21 16:43 Patient symptoms are suggestive of vasovagal syncope. Will get EKG and basic labs. Will give IV fluid bolus, Toradol, Flexeril for painful right posterior paracervical spinal muscle spasm 04/03/21 18:12 Patient's labs are all unremarkable. Will discharge with PMD follow-up for likely vasovagal episode. Departure - Departure Time of Disposition: 18:12 Disposition: Home, Self-Care 01 Condition: Good Clinical Impression: Vasovagal episode - Discharge Information Instructions: Near-Syncope Forms: ED Department Discharge Additional Instructions: Your symptoms are consistent with a type of passing out called vasovagal s yncope. This is usually not very dangerous. You should definitely follow-up with your primary care physician and see if they want to do any further work-up. If you have further episodes of passing out then you should come back to the emergency department for reassessment. The following information is given to patients seen in the emergency department who are being discharged to home. This information is to outline your options for follow-up care. We provide all patients seen in our emergency department with a follow-up referral. The need for follow-up, as well as the timing and circumstances, are variable depending upon the specifics of your emergency department visit. If you don't have a primary care physician on staff, we will provide you with a referral. We always advise you to contact your personal physician following an emergency department visit to inform them of the circumstance of the visit and for follow-up with them and/or the need for any referrals to a consulting spec ialist. The emergency department will also refer you to a specialist when appropriate. This referral assures that you have the opportunity for follow-up care with a specialist. All of these measure are taken in an effort to provide you with optimal care, which includes your follow-up. Under all circumstances we always encourage you to contact your private physician who remains a resource for coordinating your care. When calling for follow-up care, please make the office aware that this follow-up is from your recent emergency room visit. If for any reason you are refused follow-up, please contact the [facility] Emergency Department at and asked to speak to the emergency department charge nurse. Please follow up with your primary care physician. If you do not have a primary care physician, see below: [facility] [address] [place] [address] [id number] [facility] [address] [place] [id number] [facility] [address] [place] [id number] Sepsis Event Note (ED) - Evaluation Sepsis Screening Result: No Definite Risk - Focused Exam Vital Signs: Vital Signs Temp Pulse Resp BP Pulse Ox 04/03/21 16:25 98.2 F 73 20 143/84 H 96 - My Orders Last 24 Hours: My Active Orders 04/03/21 16:40 Saline Lock Insert [OM.PC] Stat - Assessment/Plan Last 24 Hours: My Active Orders 04/03/21 16:40 Saline Lock Insert [OM.PC] Stat
--- NOTE | 2021-04-03 18:01 | CR ---
INDICATION: Syncopal episode TECHNIQUE: Chest radiograph 1 view COMPARISON: 03/25/2017 FINDINGS: The sensitivity and specificity of the exam are moderately limited by the patient`s body habitus. Mediastinum: The central pulmonary arteries are near the upper limits of normal in size, similar to prior exam. The heart silhouette is normal in size and morphology. Lung: Both lungs are unremarkable in appearance. No sign of pleural effusion seen. No pneumothorax is identified. Bone and Soft tissue: Unremarkable for age. IMPRESSION: 1. No acute cardiopulmonary disease is seen. Dictated by José Wheeler MD @ 04/03/2021 6:00:56 PM Dictated by: José Wheeler MD @ 04/03/2021 18:00:59 (Electronically Signed)
[2021-04-03 18:07] LABS: BLOOD UREA NITROGEN,BUN 12 mg/dL (7.0-18.0); CARBON DIOXIDE,CO2 27.2 mmol/L (21.0-32.0); CHLORIDE,CL 104 mmol/L (98-107); GLUCOSE RANDOM 77 mg/dL (74-106); POTASSIUM,K 3.8 mmol/L (3.5-5.1); SODIUM,NA 140 mmol/L (136-145)
[2021-04-03 18:34] VITALS: BP 135/77; PULSE 65
== END 2021-04-03 18:21 | disposition home or self-care (01) ==
LOC: MW.ED 16:11
DX: R55 Syncope and collapse (principal); R42 Dizziness and giddiness; E66.9 Obesity, unspecified; Z68.42 Body mass index [BMI] 45.0-49.9, adult
CPT/HCPCS: 36415; 71045; 80053; 84443; 84484; 85025; 93005; 96374; 99284; A9270; J1885; J7030

== ENCOUNTER 2023-06-26 12:52 | Emergency (ER) | payer OTHER ==
[2023-06-26 13:59] LABS: BASOPHILS ABSOLUTE AUTO 0.04 K/uL (0.00-0.20); BASOPHILS PERCENT AUTO 0.3 % (0.0-1.0); EOSINOPHILS ABSOLUTE AUTO 0.09 K/uL (0.00-0.45); EOSINOPHILS PERCENT AUTO 0.8 % (0.0-6.0); HEMATOCRIT 43.7 % (37.0-47.0); HEMOGLOBIN 14.7 g/dL (12.0-16.0); IMMATURE GRAN ABSOLUTE AUTO 0.05 K/uL (0.00-0.05); IMMATURE GRAN PERCENT AUTO 0.4 % (0.0-0.4); LYMPHOCYTES ABSOLUTE AUTO 1.98 K/uL (1.00-4.80); LYMPHOCYTES PERCENT AUTO 17.3 % (24.0-44.0); MEAN CORPUSCULAR HEMOGLOBIN 30.4 pg (28.0-32.0); MEAN CORPUSCULAR HGB CONC 33.6 g/dL (32.0-36.0); MEAN CORPUSCULAR VOLUME 90.3 fL (83.0-99.0); MEAN PLATELET VOLUME 10.1 fL (9.4-12.3); MONOCYTES ABSOLUTE AUTO 0.48 K/uL (0.00-0.80); MONOCYTES PERCENT AUTO 4.2 % (0.0-8.0); NEUTROPHILS ABSOLUTE AUTO 8.79 K/uL (1.80-7.70); PLATELET COUNT,PLT 255 K/uL (150-400); RED BLOOD CELL COUNT 4.84 M/uL (4.10-5.30); WHITE BLOOD CELL COUNT,WBC 11.43 K/uL (3.9-11.3)
[2023-06-26 14:03] LABS: CORONAVIRUS COVID-19 NAA NEGATIVE (NEGATIVE); INFLUENZA A NAA NEGATIVE (NEGATIVE); INFLUENZA B NAA NEGATIVE (NEGATIVE); RESPIRATORY SYNCYTIAL VIR NAA NEGATIVE (NEGATIVE)
[2023-06-26 14:13] LABS: BILIRUBIN,URINE NEGATIVE (NEGATIVE); COLOR,URINE YELLOW; GLUCOSE,URINE NEGATIVE (NEGATIVE); KETONES,URINE NEGATIVE (NEGATIVE); LEUKOCYTE ESTERASE,URINE NEGATIVE (NEGATIVE); NITRITE,URINE NEGATIVE (NEGATIVE); OCCULT BLOOD,URINE NEGATIVE (NEGATIVE); PH,URINE 7.5 (5.0-8.0); PROTEIN,URINE NEGATIVE (NEGATIVE); UROBILINOGEN,URINE 0.2 EU/dL (<2.0)
[2023-06-26 14:16] LABS: APPEARANCE,URINE HAZY
[2023-06-26 14:28] LABS: CALCIUM 9.6 mg/dL (8.5-10.1); CARBON DIOXIDE,CO2 25.9 mmol/L (21.0-32.0); CREATININE 0.8 mg/dL (0.6-1.0); EST CRCL DRUG DOSING (CG) 86.37 mL/min; POTASSIUM,K 3.9 mmol/L (3.5-5.1)
[2023-06-26] MEDS: Meclizine 25 MG Tab PO STA (14:48)
[2023-06-26] MEDS: Sodium Chloride 0.9% 1,000 ML IV ONE (14:49)
[2023-06-26] MEDS: Ketorolac 30 MG/ML SDV IVPUSH ONE (14:49)
[2023-06-26] MEDS: Iopamidol 755 Mg/ML 100 ML Bottle IVPUSH ONE (16:52)
[2023-06-26 17:59] VITALS: BP 147/91; PULSE 74
== END 2023-06-26 17:57 | disposition home or self-care (01) ==
LOC: MW.ED 12:52
DX: R42 Dizziness and giddiness (principal); R51.9 Headache, unspecified; H53.149 Visual discomfort, unspecified; M54.2 Cervicalgia; E66.9 Obesity, unspecified; Z79.899 Other long term (current) drug therapy; Z88.8 Allergy status to other drugs, medicaments and biological substances; Z68.42 Body mass index [BMI] 45.0-49.9, adult
CPT/HCPCS: 0241U; 36415; 70496; 70498; 80048; 81003; 81025; 85025; 96374; 99284; A9270; J1885; J7030; Q9967

== ENCOUNTER 2024-03-20 05:00 | Inpatient (IN) | payer OTHER ==
[2024-03-20] MEDS ORDERED: Sodium Chloride 0.9% 10 ML Syringe FLUSH PRN (05:18)
[2024-03-20] MEDS ORDERED: Sodium Chloride 0.9% 2.5 ML Syringe FLUSH PRN (05:18)
[2024-03-20] MEDS ORDERED: Sodium Chloride 0.9% 20 ML SDV IV PRN (05:18)
[2024-03-20] MEDS ORDERED: Oxytocin/0.9 % Sodium Chloride 30 UNIT/500 ML BAG IV SCH (05:30)
[2024-03-20] MEDS: Lactated Ringers 1,000 ML IV SCH ×2 (05:57→10:04)
[2024-03-20 06:03] LABS: HEMATOCRIT 36.1 % (37.0-47.0); MEAN CORPUSCULAR HEMOGLOBIN 30.2 pg (28.0-32.0); MEAN CORPUSCULAR HGB CONC 33.2 g/dL (32.0-36.0); MEAN CORPUSCULAR VOLUME 90.9 fL (83.0-99.0); MEAN PLATELET VOLUME 10.9 fL (9.4-12.3); PLATELET COUNT,PLT 225 K/uL (150-400); RED BLOOD CELL COUNT 3.97 M/uL (4.10-5.30); WHITE BLOOD CELL COUNT,WBC 10.72 K/uL (3.9-11.3)
[2024-03-20] MEDS ORDERED: Oxytocin 10 Units/1 ML SDV ONE ×2 (06:53→08:13)
[2024-03-20] MEDS ORDERED: Phenylephrine 1% 10 MG/ML SDV ONE (06:53)
[2024-03-20] MEDS ORDERED: Ropivacaine 0.5% 5 MG/ML 30 ML SDV ONE (06:53)
[2024-03-20] MEDS ORDERED: dexmedeTOMIDine HCl 200 MCG/2 ML SDV ONE (06:55)
[2024-03-20] MEDS ORDERED: Calcium Chloride 10% 1 GM/10 ML Syringe ONE (06:55)
[2024-03-20] MEDS ORDERED: Ondansetron 4 MG/2 ML SDV ONE ×2 (06:55→08:36)
[2024-03-20] MEDS ORDERED: Tranexamic Acid 1,000 MG/10 ML Vial ONE (06:55)
[2024-03-20] MEDS ORDERED: Dexamethasone 4 MG/ML 5 ML MDV ONE (06:55)
[2024-03-20] MEDS ORDERED: ceFAZolin 2 GM Vial ONE (06:55)
[2024-03-20] MEDS ORDERED: Water For Injection, Sterile 20 ML ONE (06:56)
[2024-03-20] MEDS ORDERED: fentaNYL 100 MCG/2 ML SDV ONE (06:56)
[2024-03-20] MEDS ORDERED: Morphine PF 10 MG/10 ML SDV ONE (06:56)
[2024-03-20] MEDS ORDERED: ePHEDrine 50 MG/ML SDV ONE (07:00)
[2024-03-20] MEDS ORDERED: Ondansetron 4 MG/2 ML SDV IVPUSH PRN ×3 (07:28→09:31)
[2024-03-20] MEDS ORDERED: Acetaminophen/oxyCODONE 325-5 MG Tab PO PRN ×3 (07:28→09:31)
[2024-03-20] MEDS ORDERED: fentaNYL 50 MCG/ML SDV IVPUSH PRN (07:28)
[2024-03-20] MEDS ORDERED: Albuterol 0.083% 2.5 MG/3 ML Neb Soln NEB PRN (07:28)
[2024-03-20] MEDS ORDERED: Phenylephrine HCl In 0.9% NaCl 1 MG/10 ML Syringe IVPUSH PRN (07:28)
[2024-03-20] MEDS ORDERED: Naloxone 0.4 MG/ML SDV IVPUSH PRN (07:28)
[2024-03-20] MEDS ORDERED: Nalbuphine 10 MG/1 ML Vial IVPUSH PRN (07:28)
[2024-03-20] MEDS ORDERED: HYDROmorphone 1 MG/ML Syringe IVPUSH PRN (07:28)
[2024-03-20] MEDS ORDERED: Morphine 2 MG/ML SYRINGE IVPUSH PRN (07:28)
[2024-03-20] MEDS ORDERED: Metoclopramide 10 MG/2 ML SDV IVPUSH PRN (07:28)
[2024-03-20] MEDS ORDERED: fentaNYL 100 MCG/2 ML SDV IVPUSH PRN (07:28)
[2024-03-20] MEDS ORDERED: ceFAZolin 1 GM Vial ONE (07:33)
[2024-03-20] MEDS ORDERED: droPERidol 5 MG/2 ML SDV ONE (08:05)
[2024-03-20] MEDS: Citric Acid/Sodium Citrate Solution 30 ML Cup PO ONE (08:18)
[2024-03-20] MEDS ORDERED: Metoclopramide 10 MG/2 ML SDV ONE (08:30)
[2024-03-20] MEDS ORDERED: Propofol 200 MG/20 ML SDV ONE (08:30)
[2024-03-20] MEDS ORDERED: Phenylephrine HCl In 0.9% NaCl 1 MG/10 ML Syringe ONE (08:56)
[2024-03-20] MEDS ORDERED: Bisacodyl 10 MG Supp RECTAL PRN (09:31)
[2024-03-20] MEDS ORDERED: Oxytocin 10 Units/1 ML SDV IM PRN (09:31)
[2024-03-20] MEDS ORDERED: diphenhydrAMINE 50 MG/ML SDV IVPUSH PRN (09:31)
[2024-03-20] MEDS ORDERED: Misoprostol 200 MCG Tab RECTAL PRN (09:31)
[2024-03-20 09:55] LABS: PH,UMBILICAL VENOUS 7.316 (7.25-7.45)
[2024-03-20 09:56] LABS: PH,UMBILICAL ARTERIAL 7.238 (7.18-7.38)
[2024-03-20] MEDS: Phenylephrine HCl In 0.9% NaCl 1 MG/10 ML Syringe IVPUSH PRN (09:59)
[2024-03-20] MEDS: Acetaminophen 1,000 MG in Premix Bag 1 BAG IV SCH (10:49)
[2024-03-20] MEDS: diphenhydrAMINE 50 MG/ML SDV IVPUSH PRN (12:53)
[2024-03-20] MEDS: Ketorolac 30 MG/ML SDV IVPUSH SCH (14:50)
[2024-03-20] MEDS: Lanolin 100% Cream 7 GM Tube TOP PRN (16:47)
[2024-03-20] MEDS: Docusate Sodium 100 MG Cap PO SCH (22:08)
[2024-03-21 06:14] LABS: HEMATOCRIT 29.6 % (37.0-47.0); HEMOGLOBIN 10.1 g/dL (12.0-16.0)
[2024-03-21] MEDS ORDERED: Ibuprofen 800 MG Tab PO PRN (09:31)
[2024-03-21] MEDS: Ketorolac 30 MG/ML SDV IVPUSH SCH (16:49)
[2024-03-21] MEDS: Simethicone 80 MG Tab.Chew PO PRN (20:46)
[2024-03-22] MEDS: Ibuprofen 800 MG Tab PO PRN (01:00)
[2024-03-22 16:15] VITALS: BP 119/68; PULSE 89
== END 2024-03-22 16:22 | disposition home or self-care (01) | DRG 788 ==
LOC: MW.OB 05:00
PROVIDERS: ADMIT Obstetrics & Gynecology; ATTEND Obstetrics & Gynecology
PROC: 10D00Z1 Extraction of Products of Conception, Low, Open Approach (ICD-10-PCS; principal; 2024-03-20 08:00)
DX: O34.211 Maternal care for low transverse scar from previous cesarean delivery (principal); O16.4 Unspecified maternal hypertension, complicating childbirth; O99.214 Obesity complicating childbirth; Z37.0 Single live birth; Z3A.37 37 weeks gestation of pregnancy
CPT/HCPCS: 36415; 59025; 82803; 85014; 85018; 85027; 86592; 86850; 86900; 86901; 87340; A9270-GY; J0131; J0690; J1100; J1200; J1790; J1885; J2274; J2371; J2405; J2590; J2704; J2765; J2795; J3010; J3490; J7120

== ENCOUNTER 2024-03-23 18:32 | Emergency (ER) | payer OTHER ==
[2024-03-23 20:46] LABS: BASOPHILS ABSOLUTE AUTO 0.04 K/uL (0.00-0.20); BASOPHILS PERCENT AUTO 0.3 % (0.0-1.0); EOSINOPHILS PERCENT AUTO 3.5 % (0.0-6.0); HEMATOCRIT 31.3 % (37.0-47.0); HEMOGLOBIN 10.6 g/dL (12.0-16.0); IMMATURE GRAN ABSOLUTE AUTO 0.04 K/uL (0.00-0.05); IMMATURE GRAN PERCENT AUTO 0.3 % (0.0-0.4); LYMPHOCYTES ABSOLUTE AUTO 2.65 K/uL (1.00-4.80); LYMPHOCYTES PERCENT AUTO 23.1 % (24.0-44.0); MEAN CORPUSCULAR HEMOGLOBIN 30.6 pg (28.0-32.0); MEAN CORPUSCULAR HGB CONC 33.9 g/dL (32.0-36.0); MEAN CORPUSCULAR VOLUME 90.5 fL (83.0-99.0); MEAN PLATELET VOLUME 10.2 fL (9.4-12.3); MONOCYTES ABSOLUTE AUTO 0.81 K/uL (0.00-0.80); NEUTROPHILS ABSOLUTE AUTO 7.55 K/uL (1.80-7.70); NEUTROPHILS PERCENT AUTO 65.8 % (41.0-71.0); PLATELET COUNT,PLT 249 K/uL (150-400); RED BLOOD CELL COUNT 3.46 M/uL (4.10-5.30); WHITE BLOOD CELL COUNT,WBC 11.49 K/uL (3.9-11.3)
[2024-03-23 21:09] LABS: A/G RATIO 0.6 (0.9-1.6); ALBUMIN 2.5 g/dL (3.4-5.0); BILIRUBIN TOTAL 0.2 mg/dL (0.2-1.0); CARBON DIOXIDE,CO2 26.1 mmol/L (21.0-32.0); CREATININE 0.9 mg/dL (0.6-1.0); EST CRCL DRUG DOSING (CG) 76.06 mL/min; POTASSIUM,K 3.9 mmol/L (3.5-5.1); PROTEIN TOTAL,TP 6.7 g/dL (6.4-8.2)
[2024-03-23 22:06] VITALS: BP 140/98; PULSE 88
== END 2024-03-23 22:06 | disposition home or self-care (01) ==
LOC: MW.ED 18:32
DX: O90.0 Disruption of cesarean delivery wound (principal); Z88.8 Allergy status to other drugs, medicaments and biological substances; Z79.899 Other long term (current) drug therapy
CPT/HCPCS: 36415; 80053; 85025; 99283

== ENCOUNTER 2024-03-25 12:23 | Emergency (ER) | payer OTHER ==
[2024-03-25 12:38] VITALS: PULSE 75
[2024-03-25 12:40] VITALS: BP 135/81
== END 2024-03-25 13:50 | disposition home or self-care (01) ==
LOC: MW.ED 12:23
DX: Z48.01 Encounter for change or removal of surgical wound dressing (principal); I10 Essential (primary) hypertension; E66.9 Obesity, unspecified; Z88.8 Allergy status to other drugs, medicaments and biological substances; Z79.899 Other long term (current) drug therapy
CPT/HCPCS: 99282

== ENCOUNTER 2025-03-04 08:01 | Day surgery (SDC) | payer OTHER ==
[2025-03-02 14:35] LABS: MEAN PLATELET VOLUME 9.8 fL (9.4-12.3); NRBC ABSOLUTE 0.00 K/uL (0.00-0.02); NRBC PERCENT 0.0 /100WBC (0.0-0.2); PLATELET COUNT,PLT 305 K/uL (150-400); RED BLOOD CELL COUNT 4.65 M/uL (4.10-5.30); WHITE BLOOD CELL COUNT,WBC 9.08 K/uL (3.9-11.3)
[2025-03-04] MEDS ORDERED: Naloxone 0.4 MG/ML SDV IVPUSH PRN (08:14)
[2025-03-04] MEDS ORDERED: Ondansetron 4 MG/2 ML SDV IVPUSH PRN (08:14)
[2025-03-04] MEDS ORDERED: Albuterol 0.083% 2.5 MG/3 ML Neb Soln NEB PRN (08:14)
[2025-03-04] MEDS: Lactated Ringers 1,000 ML IV SCH (08:29)
[2025-03-04] MEDS ORDERED: Dexamethasone 4 MG/ML 5 ML MDV ONE (08:59)
[2025-03-04] MEDS ORDERED: Ondansetron 4 MG/2 ML SDV ONE ×2 (08:59→09:35)
[2025-03-04] MEDS ORDERED: Ketorolac 30 MG/ML SDV ONE (08:59)
[2025-03-04] MEDS ORDERED: fentaNYL 100 MCG/2 ML SDV ONE (09:32)
[2025-03-04] MEDS ORDERED: propofoL 500 MG/50 ML 50 ML ONE (10:18)
[2025-03-04] MEDS: fentaNYL 50 MCG/ML SDV IVPUSH PRN (10:33)
[2025-03-04] MEDS: Ondansetron 4 MG Tab.DIS PO ONE (12:32)
[2025-03-04 13:48] VITALS: BP 98/56; PULSE 53
== END 2025-03-04 13:20 | disposition home or self-care (01) ==
LOC: MW.SDS 08:01
PROVIDERS: ATTEND Obstetrics & Gynecology
DX: N85.8 Other specified noninflammatory disorders of uterus (principal); E66.9 Obesity, unspecified; Z68.42 Body mass index [BMI] 45.0-49.9, adult; Z88.8 Allergy status to other drugs, medicaments and biological substances
CPT/HCPCS: 36415; 58558; 84703; 85027; A9270; C1729; J0456; J1100; J1171; J1308; J1885; J2003; J2405; J2704; J3010; J7120; 00952; J3490